=== PATIENT | male | born 1975 | race American Indian/Alaskan Native ===

== ENCOUNTER 2018-06-28 18:19 | Emergency (ER) | payer OTHER ==
[2018-06-28 18:29] VITALS: O2SAT 100
[2018-06-28] MEDS ORDERED: Sodium Chloride 0.9% 1,000 ML IV ONE (19:21)
[2018-06-28] MEDS ORDERED: Piperacillin/Tazobact 3.375 GM in Sodium Chloride 0.9% 100 ML IVPB STA (19:24)
[2018-06-28] MEDS ORDERED: Piperacillin/Tazobact 3.375 gm Inj IVPB ONE (20:04)
[2018-06-28] MEDS ORDERED: Vancomycin 1 g Inj ONE (20:04)
[2018-06-28] MEDS ORDERED: Iohexol 300 100 ML IJ ONE (20:19)
[2018-06-28] MEDS ORDERED: Sodium Chloride 0.9% 50 ML IV ONE (20:19)
--- NOTE | 2018-06-28 20:22 | ED PDOC ---
HPI: General Adult Time Seen by Provider: 06/28/18 19:15 Chief Complaint (Nursing): Abnormal Skin Integrity Chief Complaint (Provider): Abnormal Skin Integrity History Per: Patient History/Exam Limitations: no limitations Onset/Duration Of Symptoms: Days (x3 years) Current Symptoms Are (Timing): Still Present Additional Complaint(s): 43 year old male presents for evaluation of multiple painful masses to his groin. He states that he has them intermittently for 3 years. Last year he was seen at [facility], [place] for the same symptoms and had a surgical procedure by Dr. Cortez, urologist. He states that shortly after the produce his symptoms returned and are worsening at present. He reports multiple abscesses, some of which are draining purulent material and/or bleeding, to the groin, scrotum and perineum. Patient took no medications [employer]. He denies any fever, urinary s ymptoms, abdominal pain, nausea, vomiting, diarrhea or any other medical complaints. Tetanus is not up to date, but does not wish to update tetanus status. PMD: none Past Medical History Reviewed: Historical Data, Nursing Documentation, Vital Signs Vital Signs: Last Vital Signs Temp 98.6 F 06/28/18 18:28 Pulse 106 H 06/28/18 18:28 Resp 18 06/28/18 18:28 BP 129/88 06/28/18 18:28 Pulse Ox 100 06/28/18 18:28 - Medical History Other PMH: recurrent abscesses - Surgical History Other surgeries: Procedure for multiple abscesses - Family History Family History: States: Unknown Family Hx - Home Medications Home Medications: Ambulatory Orders Medication Instructions Recorded Amoxicillin/Clavulanate [Augmentin 1 tab PO BID #14 tab 12/03/16 875 MG-125 MG] Ibuprofen [Motrin] 1 tab PO QID PRN #30 tab 12/03/16 Cephalexin [Keflex] 500 mg PO QID #28 capsule 07/07/17 RX: traMADol [Ultram] 50 mg PO TID PRN #15 tab 07/07/17 Sulfamethoxazole/Trimethoprim 1 tab PO BID #14 tab 07/07/17 [Bactrim DS 800 mg-160 mg] Cephalexin [Keflex] 500 mg PO Q6 #28 capsule 06/28/18 RX: Naproxen [Naprosyn] 500 mg PO Q12 PRN #20 tablet 06/28/18 Sulfamethoxazole/Trimethoprim 1 tab PO BID #14 tab 06/28/18 [Bactrim DS 800 mg-160 mg] - Allergies Allergies/Adverse Reactions: Allergies Allergy/AdvReac Type Severity Reaction Status Date / Time CHERRIES Allergy Severe ANAPHYLAXIS Uncoded 06/28/18 18:33 Review of Systems ROS Statement: Except As Marked, All Systems Reviewed And Found Negative Skin: Positive for: Other (multiple abscesses) Physical Exam - Reviewed Nursing Documentation Reviewed: Yes Vital Signs Reviewed: Yes - Physical Exam Comments: GENERAL APPEARANCE: Patient is awake, alert, oriented x 3, uncomfortable and in mild painful distress. Skin: warm and dry, (+) multiple indurated abscesses to the groin, scrotum, buttocks and perineum. Multiple fistulas with drainage. Pulmonary: lungs clear to auscultation, no rhonchi, no wheezing, no rales. Cardiac: regular rate and rhythm Abdomen: soft, nontender, nondistended. Genitals: Diffuse tenderness to the groin, scrotum, buttocks and perineum. (+) inguinal lymphadenopathy Extremities: no deformity - Laboratory Results Result Diagrams: 06/28/18 20:10 06/28/18 20:10 - ECG O2 Sat by Pulse Oximetry: 100 (RA) Pulse Ox Interpretation: Normal Medical Decision Making Medical Decision Making: Time: 1924 Clinical Impression: Multiple abscesses, cellulitis of groin Initial Plan: --CBC with differentials --CMP --NS 1L bolus --Toradol 30 mg IVP --Vancomycin --Zosyn --Blood culture x2 --Testicular US --CT pelvis with IV contrast Time: 1999 --Case endorsed to Albina Bland PA-C pending CT/US results and re- evaluation/further disposition. ---- Scribe Attestation: Documented by Dana Garibay, acting as a scribe for Glenda Morse PA-C Provider Scribe Attestation: All medical record entries made by the Scribe were at my direction and personally dictated by me. I have reviewed the chart and agree that the record accurately reflects my personal performance of the history, physical exam, medical decision making, and the department course for this patient. I have also personally directed, reviewed, and agree with the discharge instructions and disposition. Disposition - Clinical Impression Clinical Impression: Cellulitis - Patient ED Disposition Is Patient to be Admitted: Transfer of Care (Cristian Bland PA-C pending labs/imaging results.) - Disposition Disposition: Transfer of Care (Cristian Bland PA-C pending labs/imaging results.) Disposition Time: 20:00 Condition: FAIR Prescriptions: Cephalexin [Keflex] 500 mg PO Q6 #28 capsule RX: Naproxen [Naprosyn] 500 mg PO Q12 PRN #20 tablet PRN Reason: Pain, Moderate (4-7) Sulfamethoxazole/Trimethoprim [Bactrim DS 800 mg-160 mg] 1 tab PO BID #14 tab - POA Present On Arrival: None
[2018-06-28 20:26] LABS: BASO # 0.1 K/uL (0.0-0.2); BASO % 0.6 % (0.0-2.0); EOS # 0.2 K/uL (0.0-0.7); EOS % 1.3 % (0.0-4.0); HEMOGLOBIN 9.5 g/dL (12.0-18.0); LYMPH # 1.9 K/uL (1.0-4.3); LYMPH % 13.9 % (20.0-40.0); MEAN CELL VOLUME 74.9 fl (80.0-94.0); MEAN CORPUSCULAR HEMOGLOBIN 23.5 pg (27.0-31.0); MEAN CORPUSCULAR HGB CONC 31.4 g/dL (33.0-37.0); MONO # 0.7 K/uL (0.0-0.8); MONO % 5.2 % (0.0-10.0); NEUT # 10.9 K/uL (1.8-7.0); NRBC % 0.1 % (0.0-0.0); RBC 4.02 Mil/uL (4.40-5.90); RED CELL DISTRIBUTION WIDTH 16.8 % (11.5-14.5); WHITE BLOOD COUNT 13.8 K/uL (4.8-10.8)
[2018-06-28 20:34] LABS: ALB/GLOB RATIO 0.8 (1.0-2.1); ALBUMIN 3.8 g/dL (3.5-5.0); ALT/SGPT 25 U/L (21-72); AST/SGOT 28 U/L (17-59); BLOOD UREA NITROGEN 15 mg/dl (9-20); CALCIUM 8.5 mg/dL (8.4-10.2); GFR NON-AFRICAN AMERICAN > 60
--- NOTE | 2018-06-28 21:28 | ED PDOC ---
- Laboratory Results Result Diagrams: 06/28/18 20:10 06/28/18 20:10 - ECG O2 Sat by Pulse Oximetry: 100 (RA) - Progress ED Course And Treament: Case endorsed to [facility] underwriter from Lito HANSON pending labs, imaging [employer] ULTRASOUND STUDY Indications: Pain, patient states left leg abscess. Comparison: None. Technique: Grayscale, color flow and Doppler ultrasound performed. Findings: The right testicle is normal in size shape and echogenicity. It measures 4.4 x 2.1 x 2.8 cm. There is normal Doppler color-flow signal. The right epididymis measures 1.1 x 0.6 x 0.7 cm. It also demonstrates normal flow on Doppler examination. Left testicle is similar to the right. There is normal in and homogeneous in echogenicity and demonstrates normal flow by color flow and Doppler ultrasound. The size is 4.6 x 1.9 x 2.2 cm. The epididymis measures 1.2 x 0.6 x 1.2 cm and also demonstrates normal flow by Doppler studies. There are no hydroceles or masses identified. Impression: Unremarkable scrotal ultrasound EXAM: CT Pelvis and Hip, bilateral, with IV contrast. CLINICAL HISTORY: Pain, multiple abcesses of groin TECHNIQUE: Axial computed tomography images of the pelvis and bilateral hip with intravenous contrast. 317.49 mGy-cm IV CONTRAST: With COMPARISON: None provided. FINDINGS: HIP JOINTS: Focused images acquired of the bilateral hip. No dislocation. The joint spaces are normal. BONES: No acute fracture or aggressive appearing osseous lesion. No suspicious focal osseous lesions. SOFT TISSUES: The pelvic viscera are unremarkable. No fluid collection, hematoma or mass. No radiopaque foreign body or soft tissue gas. MISCELLANEOUS: There are inflammatory changes at the left inguinal canal which continue inferiorly but it appeared to terminate prior to entering the testicular sac. Additional foci of inflammatory changes is not identified. There is bilateral adenopathy at the groins, see several of the anterior coronal images. IMPRESSION: 1. There are inflammatory changes at the left inguinal canal which continue inferiorly but it appeared to terminate prior to entering the testicular sac. 2. Additional foci of inflammatory changes is not identified. 3. There is bilateral adenopathy at the groins Case discussed with ED attending Dr. Jaramillo; agrees with plan to d/c with PO abx and outpatient Dermatology follow up Patient educated on findings, discharged with rx Keflex, Bactrim DS Advised follow up with Dermatology. Return precautions given Disposition - Clinical Impression Clinical Impression: Cellulitis - POA Present On Arrival: None - Disposition Referrals: [facility] [Outside] Disposition: Routine/Home Disposition Time: 23:06 Condition: IMPROVED Prescriptions: Cephalexin [Keflex] 500 mg PO Q6 #28 capsule Naproxen [Naprosyn] 500 mg PO Q12 PRN #20 tablet PRN Reason: Pain, Moderate (4-7) Sulfamethoxazole/Trimethoprim [Bactrim DS 800 mg-160 mg] 1 tab PO BID #14 tab Instructions: Cellulitis and Erysipelas (Skin Infections) Forms: [employer] [facility] (Azeri), [facility] ED School/Work Excuse
[2018-06-29 01:50] VITALS: BP 97/71; PULSE 76; RESP 16; TEMP 98.4
--- NOTE | 2018-06-29 10:04 | US ---
Date of service: 06/28/2018 HISTORY: scrotal abscess TECHNIQUE: Realtime sonography through the scrotum with color and doppler flow. COMPARISON: None Available. FINDINGS: RIGHT TESTICLE: Measures 4.4 x 2.1 x 2.8 cm. Normal echotexture and flow. RIGHT EPIDIDYMIS: Epididymal head measures 1.1 x 0.6 x 0.7 cm. Grossly unremarkable appearance with normal flow. LEFT TESTICLE: Measures 4.6 x 1.9 x 2.2 cm. Normal echotexture and flow. LEFT EPIDIDYMIS: Epididymal head measures 1.2 x 0.6 x 1.2 cm. Grossly unremarkable appearance with normal flow. HYDROCELE: None. VARICOCELE: None. OTHER FINDINGS: None. IMPRESSION: Normal scrotal ultrasound. No intratesticular pathology noted. Specifically no scrotal abscess appreciated. Clinical follow-up recommended. Concordant results (preliminary interpretation) provided by markie.
--- NOTE | 2018-06-29 11:14 | CT ---
Date of service: 06/28/2018 PROCEDURE: CT Pelvis with contrast HISTORY: multiple abscesses of groin COMPARISON: None available. TECHNIQUE: Contiguous axial images of the pelvis with contrast. Coronal and sagittal reformats generated. Contrast dose: 95 ML of Omnipaque 300 Radiation dose: Total exam DLP = 317.49 mGy-cm. This CT exam was performed using one or more of the following dose reduction techniques: Automated exposure control, adjustment of the mA and/or kV according to patient size, and/or use of iterative reconstruction technique. FINDINGS: BLADDER: Unremarkable. No mass. REPRODUCTIVE ORGANS: Unremarkable. VISUALIZED BOWEL: Unremarkable. PERITONEUM: Unremarkable, as visualized. No free fluid. No free air. LYMPH NODES: Unremarkable. No enlarged lymph nodes. Few small groin lymph nodes not the suspiciously enlarged are noted. VASCULATURE: No aortic atherosclerotic calcification or mural plaque present. BONES: No fracture or focal lesion. OTHER FINDINGS: There are mild inflammatory changes in the left inguinal canal which continue caudally and blend with left inner thigh dermal thickening (axial series 2, image 100). This spans at least 7 to 8 cm in anterior posterior extent along the left perineum/inner left thigh. Here an approximately 10 mm subtle hypodensity is associated with it within these inflammatory superficial soft tissue changes. A small developing abscess here is a consideration (coronal series 601, image 42. This time no gas within this small approximately 10 mm collection is noted. Continued close follow-up is advised. This is separate from the scrotal sac proper. IMPRESSION: Inflammatory changes from the left inguinal canal extending caudally along the inner superficial left by as detailed above. A small approximately 10 mm hypodense fluid like collection without gas within these medial soft tissues-compatible with a small developing abscess here is a consideration. Close follow-up is advised. The inflammatory changes were mentioned on the prior [place] preliminary report-however the small hypodense collection here was not.
== END 2018-06-29 01:30 | disposition home or self-care (01) ==
LOC: H.ER 18:19
DX: L03.314 Cellulitis of groin (principal); L02.214 Cutaneous abscess of groin
CPT/HCPCS: 72193; 80053; 85025; 87040; 93975; 96361; 96365; 96375; 99284; J1885; J2543; J7040; Q9967